=== PATIENT | male | born 1985 ===

== ENCOUNTER → 2017-09-04 | Outpatient (REF) | payer SELFPAY ==
[2017-09-04 14:44] LABS: % NORMAL FORMS 11 % (>=4); IMMOTILITY 45 %; NON PROGRESSIVE MOTILITY (c) 10 %; PROGRESSIVE MOTILITY (a) 45 % (>=32); SPERM ABNORMAL FORMS 0; TOTAL MOTILITY 55 % (>=40)
[2017-09-04 14:45] LABS: SPERM# 326.4 M/Ejac (>=39); TOTAL FUNCTIONAL 36.2 M/Ejac.; TOTAL PROGRESSIVE SPERM 146.9 M/Ejac.
== END ==
LOC: M LAB REF 14:32
PROVIDERS: ATTEND Student in an Organized Health Care Education/Training Program
DX: N46.8 Other male infertility (principal)